=== PATIENT | female | born 1985 | race Caucasian/White ===

== ENCOUNTER 2022-01-17 16:14 | Outpatient (REF) | payer MEDICAID, SELFPAY | END 2022-01-17 16:15 | disposition home or self-care (01) | LOC: HO.LAB 16:14 | PROVIDERS: Visit Provider General Practice | DX: Z13.89 Encounter for screening for other disorder (principal) ==

== ENCOUNTER 2022-12-31 08:37 | Outpatient (REF) | payer MEDICAID, SELFPAY ==
--- NOTE | 2022-12-31 08:43 | EMG_ITS ---
Please see scanned EMG / Nerve Conduction Report. MTDD
== END 2022-12-31 08:38 | disposition home or self-care (01) ==
LOC: HO.NEURO 08:37
PROVIDERS: PCP General Practice; Visit Provider Registered Nurse
DX: R20.0 Anesthesia of skin (principal); R20.2 Paresthesia of skin
CPT/HCPCS: 95860; 95885; 95907; 95910